=== PATIENT | female | born 1940 | race Caucasian/White ===

== ENCOUNTER 2016-07-28 18:16 | Emergency (ER) | payer MEDICARE, BC ==
[2016-07-28 18:39] VITALS: BP 185/84
[2016-07-28] MEDS ORDERED: Lidocaine 2% 5 ML SDV ONE (18:45)
[2016-07-28] MEDS ORDERED: Diphtheria,Pertussis(Acell),Tetanus Vaccine 0.5 ML SDV IM ONE (18:51)
--- NOTE | 2016-07-28 18:55 | EDM.PDOC ---
ED HPI Skin/Rash - General Chief Complaint: Laceration Stated Complaint: RIGHT INDEX FINGER LACERATION Time Seen by Provider: 07/28/16 18:50 Source: Reports: Patient History Limitations: Reports: No limitations - History of Present Illness INITIAL COMMENTS - FREE TEXT/NARRATIVE: PT STATES SHE ACCIDENTLY CUT RIGHT INDEX FINGER ON BROKEN GLASS. DENIES ANY OTHER INJURY Symptom Onset Date: 07/28/16 Symptom Onset Time: 16:00 Timing: Reports: still present Location, Skin: Reports: upper extremity, right Quality: Reports: Burning Severity: mild Known Identified Source: yes When: prior to symptom onset Place of Occurrence: home Associated Symptoms: Reports: no other symptoms Treatments [employer]: Reports: Dressing(s) - Related Data Allergies Allergy/AdvReac Type Severity Reaction Status Date / Time No Known Drug Allergies Allergy Cannot Verified 07/28/16 18:39 Remember Home Meds: Ambulatory Orders Medication Instructions Recorded Confirmed . [No Known Home Meds] 07/28/16 07/28/16 ED ROS GENERAL - Review of Systems Review Of Systems: ROS reveals no pertinent complaints other than HPI. Constitutional: Reports: no symptoms HEENT: Reports: No symptoms Respiratory: Reports: no symptoms Cardiovascular: Reports: No symptoms Endocrine: Reports: no symptoms GI/Abdominal: Reports: No symptoms : Reports: no symptoms Musculoskeletal: Reports: no symptoms Skin: Reports: no symptoms Neurological: Reports: no symptoms Psychiatric: Reports: No symptoms Hematologic/Lymphatic: Reports: no symptoms Immunologic: Reports: no symptoms ED EXAM, SKIN/RASH Exam: See Below Exam Limited By: No limitations General Appearance: alert, WD/WN, no apparent distress Throat/Mouth: Normal inspection, Normal oropharynx, No airway compromise Respiratory/Chest: no respiratory distress Extremities: other (2 CM LACERATION TO DORSAL ASPECT OR RIGHT 2ND DIGIT) Neurological: alert, oriented, normal cognition Psychiatric: normal affect, normal mood Skin: Warm, Dry, Normal color, No rash, Wound/incision Location, Skin: upper extremity, right Lymphatic: no adenopathy ED SKIN PROCEDURES - Laceration/Wound Repair Right Finger Lac/wound length in cm: 2 Appearance: superficial Distal NVT: neuro & vascular intact, no tendon injury Anesthetic type: digital Local anesthesia - Lidocaine (Xylocaine): 2% plain Local anesthetic volume: 2cc Skin prep: providone-iodine (betadine) Closed with: sutures Suture size: other (5.0) Suture type: prolene Course - Vital Signs Last Recorded V/S: Last Vital Signs Temp 98.1 F 07/28/16 18:36 Pulse 67 07/28/16 18:36 Resp 18 07/28/16 18:36 BP 185/84 H 07/28/16 18:36 Pulse Ox 97 07/28/16 18:36 - Orders/Labs/Meds Meds: Medications Discontinued Medications Generic Name Dose Route Start Last Admin Trade Name Vicky PRN Reason Stop Dose Admin Lidocaine Confirm 07/28/16 18:45 Xylocaine-Mpf 2% Administered 07/28/16 18:46 Dose 5 ml .ROUTE .STK-MED ONE - Re-Assessments/Exams Free Text/Narrative Re-Assessment/Exam: 07/28/16 18:55 PT AFEBRILE, NONTOXIC APPEARING, TOLERATED PROCEDURE WELL. SUTURE REMOVAL IN 10 DAYS Departure - Departure Time of Disposition: 18:56 Disposition: Home, Self-Care 01 Condition: good Clinical Impression: Laceration of finger of right hand Qualifiers: Encounter type: initial encounter Qualified Code(s): S61.219A - Laceration without foreign body of unspecified finger without damage to nail, initial encounter Instructions: Laceration Care, Adult, [id number], Stitches, Hermes, or Adhesive Wound Closure, [id number] Forms: ED Department Discharge Additional Instructions: FOLLOW UP AT CLINIC IN 10 DAYS FOR SUTURE REMOVAL
[2016-07-28] MEDS ORDERED: Bacitracin/Neomycin/Polymyxin B Oint 0.9 GM U/D Packet TOP ONE (19:00)
[2016-07-28] MEDS ORDERED: Bacitracin/Neomycin/Polymyxin B Oint 0.9 GM U/D Packet ONE (19:19)
== END 2016-07-28 19:30 | disposition home or self-care (01) ==
LOC: KA.ED 18:16
DX: S61.210A Laceration without foreign body of right index finger without damage to nail, initial encounter (principal); Z23 Encounter for immunization; W25.XXXA Contact with sharp glass, initial encounter
CPT/HCPCS: 12001; 90471; 90715; 99282